=== PATIENT | female | born 1980 | race Caucasian/White ===

== ENCOUNTER 2017-01-29 12:07 | Inpatient (IN) | payer SELFPAY ==
[2017-01-29] MEDS ORDERED: NS 1000 ML 1,000 ML ONE ×2 (12:55→15:08)
[2017-01-29] MEDS ORDERED: NS 1000 ML 1,000 ML IV ONE ×2 (13:14→15:14)
--- NOTE | 2017-01-29 13:27 | DR.GENAD ---
HPI - PCP Primary Care Physician: Jerad - Complaint/Symptoms Chief Complaint Doctors Comments: Mom was called by amos and stated that patient walking by the road and needed to be picked up. Mom stated that she brought her to the ED for evaluation. Patient denies being homocidal or suicidal. She admits to being a user of drugs for three years atleast Chief Complaint:: pt states she is hurting all over her body and that she has been coughin up a lot of cold Self Treatment fo Chief Complaint: Xanax this am. 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 Past Surgical History Comment: tubiligation - Family History History of Family Medical Conditions: Yes Family Medical History: Diabetes Mellitus, Hypertension - Social History Does patient currently use any type of tobacco product: Yes Have you used tobacco products in the last 12 months: Yes Type of Tobacco Use: Cigarettes Does any household member use tobacco: Yes Alcohol Use: None Do you use any recreational Drugs:: No Lives With: Family Lives Where: Home - infectious screening In the last 2 months have you had wt loss of >10#?: NO Have you had fever, night sweats or hemotysis?: No Have you traveled outside the country in the last 6 months?: No Isolation: Standard ROS - Review of Systems Eyes: No Symptoms Reported ENTM: No Symptoms Reported Respiratoy: No Symptoms Reported Cardiovascular: No Symptoms Reported Gastrointestinal/Abdominal: No Symptoms Reported Genitourinary: No Symptoms Reported Neurological: No Symptoms Reported Musculoskeletal: No Symptoms Reported Integumentary: No Symptoms Reported Hematologic/Lymphatic: No Symptoms Reported Endocrine: No Symptoms Reported Psychiatric: No Symptoms Reported All Other Systems: Reviewed and Negative PE - Vital Signs Vitals: Temperature 99.3 F Pulse Rate 126 Respiratory Rate 22 Blood Pressure [Right Arm] 122/71 Blood Pressure 113/67 O2 Sat by Pulse Oximetry 92 - General General Appearance: Alert - Head Head Exam: Normal Inspection, Atraumatic - Eyes Eye exam: Normal Appearance, PERRL, EOMI - ENT ENT Exam: Normal Exam External Ear Exam: Normal External Inspection TM/Canal Exam: Bilateral Normal Nose Exam: Normal Nose Exam Mouth Exam: Normal Inspection Throat Exam: Normal Inspection - Neck Neck Exam: Normal Inspection - Chest Chest Inspection: Normal Inspection - Respiratory Respiratory Exam: Normal Lung Sounds Bilat Respiratory Exam: Bilateral Clear to Auscultation - Cardiovascular Cardiovascular Exam: Regular Rate, Normal Rhythm - Abdominal Exam Abdominal Exam: Normal Inspection Abdominal Tenderness: negative: RUQ, RLQ, LUQ, LLQ, Epigastrium, Suprapubic, Diffuse, Mild, Moderate, Severe, Other - Extremities Extremities Exam: Normal Inspection - Back Back Exam: Normal Inspection, Full ROM - Neurologic Neurological Exam: Alert, Oriented X3, CN II-XII Intact - Psychiatric Psychiatric Exam: Normal Affect - Skin Skin Exam: Warm, Dry Course - Treatment Treatment: Patient did not want questioned in the presence of her mother and her mother would not leave room. Delay in diagnosis and treatment of pneumonia - Reevaluation 1st: Unchanged - Consultation Called: 16:15 (Dr Pfeiffer agreed to admit for further management) ROR - Labs Reviewed Laboratory Results Reviewed?: Yes (meth,opiates,benzo,THC) Result Diagrams: 01/29/17 14:28 01/29/17 14:28 Laboratory: WBC 6.1 X10^3/uL (3.6-10.0) 01/29/17 14:28 RBC 3.96 X10^6/uL (3.5-5.4) 01/29/17 14:28 Hgb 12.0 g/dL (12.0-16.0) 01/29/17 14:28 Hct 34.9 % (36.0-47.0) L 01/29/17 14:28 MCV 88.2 fL (80.0-100.0) 01/29/17 14:28 MCH 30.3 pg (27.0-34.0) 01/29/17 14:28 MCHC 34.4 g/dL (33.0-35.0) 01/29/17 14:28 RDW 12.8 % (11.6-16.5) 01/29/17 14:28 Plt Count 170 X10^3/uL (150.0-450.0) 01/29/17 14:28 Plt Count Comment Adequate (ADEQUATE) 01/29/17 14:28 MPV 8.7 fL (7.4-11.0) 01/29/17 14:28 Neut % 91.5 % (42.0-75.0) H 01/29/17 14:28 Lymph % 5.5 % (21.0-51.0) L 01/29/17 14:28 [place] % 2.8 % (0.0-13.0) 01/29/17 14:28 Eos % 0.0 % (0.9-2.9) L 01/29/17 14:28 Baso % 0.2 % (0.2-1.0) 01/29/17 14:28 Neut # 5.6 x10^3/uL (2.2-4.8) H 01/29/17 14:28 Lymph # 0.3 X10^3/uL (1.3-2.9) L 01/29/17 14:28 [place] # 0.2 x10^3/uL (0.3-0.8) L 01/29/17 14:28 Eos # 0.0 x10^3/uL (0.0-0.2) 01/29/17 14:28 Baso # 0.0 X10^3/uL (0.0-0.1) 01/29/17 14:28 Absolute Nucleated RBC 0.0 /100WBC 01/29/17 14:28 Total Counted 100 01/29/17 14:28 Neutrophils % (Manual) 55 % (39-76) 01/29/17 14:28 Band Neutrophils % 24 % (0-10) H 01/29/17 14:28 Lymphocytes % (Manual) 7 % (13-43) L 01/29/17 14:28 Monocytes % (Manual) 2 % (4-9) L 01/29/17 14:28 Metamyelocytes % 9 01/29/17 14:28 Myelocytes % 3 01/29/17 14:28 Plt Morphology Comment Normal (NORMAL) 01/29/17 14:28 RBC Morphology Normal (NORMAL) 01/29/17 14:28 Sodium 136 mmol/L (136-145) 01/29/17 14:28 Corrected Sodium TNP 01/29/17 14:28 Potassium 3.9 mmol/L (3.5-5.1) 01/29/17 14:28 Chloride 105 mmol/L (98-107) 01/29/17 14:28 Carbon Dioxide 27.5 mmol/L (21-32) 01/29/17 14:28 BUN 15 mg/dL (7-18) 01/29/17 14:28 Creatinine 0.93 mg/dL (0.55-1.02) 01/29/17 14:28 Est GFR (MDRD) Af Amer > 60 (>60) 01/29/17 14:28 Est GFR (MDRD) Non-Af > 60 (>60) 01/29/17 14:28 Glucose 99 mg/dL (65-99) 01/29/17 14:28 Calcium 7.9 mg/dL (8.5-10.1) L 01/29/17 14:28 Corrected Calcium 8.9 mg/dL (8.5-10.1) 01/29/17 14:28 Total Bilirubin 0.80 mg/dL (0.2-1.0) 01/29/17 14:28 AST 17 Units/L (15-37) 01/29/17 14:28 ALT 21 Units/L (12-78) 01/29/17 14:28 Alkaline Phosphatase 47 Units/L (46-116) 01/29/17 14:28 Total Protein 5.5 g/dL (6.4-8.2) L 01/29/17 14:28 Albumin 2.7 g/dL (3.4-5.0) L 01/29/17 14:28 Globulin 2.8 g/dL (2.5-4.5) 01/29/17 14:28 Albumin/Globulin Ratio 1.0 Ratio (1.1-2.1) L 01/29/17 14:28 Specimen Type Catherized urine 01/29/17 14:35 Urine Color Yellow (YELLOW) 01/29/17 14:35 Urine Appearance Clear (CLEAR) 01/29/17 14:35 Urine pH 6.0 (5.0 - 8.0) 01/29/17 14:35 Ur Specific [place] 1.010 (1.000-1.030) 01/29/17 14:35 Urine Protein 1+ (NEGATIVE) 01/29/17 14:35 Urine Glucose (UA) Negative (NEGATIVE) 01/29/17 14:35 Urine Ketones Negative (NEGATIVE) 01/29/17 14:35 Urine Occult Blood Negative (NEGATIVE) 01/29/17 14:35 Urine Nitrite Negative (NEGATIVE) 01/29/17 14:35 Urine Bilirubin Negative (NEGATIVE) 01/29/17 14:35 Urine Urobilinogen Normal (NORMAL) 01/29/17 14:35 Ur Leukocyte Esterase 1+ (NEGATIVE) 01/29/17 14:35 Urine RBC 0-1 /HPF (NEGATIVE) 01/29/17 14:35 Urine WBC 3-5 /HPF (NEGATIVE) 01/29/17 14:35 Ur Squamous Epith Cells Few /HPF (NEGATIVE) 01/29/17 14:35 Amorphous Sediment Trace /HPF (NEGATIVE) 01/29/17 14:35 Urine Bacteria Trace /HPF (NEGATIVE) 01/29/17 14:35 Urine Mucus Few /HPF (NEGATIVE) 01/29/17 14:35 Ur Culture Indicated? No/not indicated 01/29/17 14:35 Urine Opiates Screen Positive (NEG=<300) A 01/29/17 14:35 Urine Methadone Screen Negative (NEG=<300) 01/29/17 14:35 Ur Barbiturates Screen Negative (NEG=<200) 01/29/17 14:35 Ur Phencyclidine Scrn Negative (NEG=<25) 01/29/17 14:35 Ur Amphetamines Screen Positive (NEG=<1000) A 01/29/17 14:35 U Benzodiazepines Scrn Positive (NEG=<200) A 01/29/17 14:35 Urine Cocaine Screen Negative (NEG=<300) 01/29/17 14:35 U Marijuana (THC) Screen Positive (NEG=<50) A 01/29/17 14:35 Streptococcus Screen Negative (NEGATIVE) 01/29/17 14:47 - XRAY XRAY Interpreted by: Radiologist (LLL pneumonia) - Diagnosis Discharge Problem: Drug abuse and dependence LLL pneumonia Qualifiers: Pneumonia type: due to unspecified organism Qualified Code(s): J18.1 - Lobar pneumonia, unspecified organism - Discharge Plan Condition: Stable - Follow ups/Referrals Follow ups/Referrals: Marcel Mars [Primary Care Provider] - 3 days - Instructions
[2017-01-29 14:35] LABS: BASOPHILS % (AUTO) 0.2 % (0.2-1.0); HEMATOCRIT 34.9 % (36.0-47.0); LYMPHOCYTES # (AUTO) 0.3 X10^3/uL (1.3-2.9); LYMPHOCYTES % (AUTO) 5.5 % (21.0-51.0); MEAN CORPUSCULAR HEMOGLOBIN 30.3 pg (27.0-34.0); MEAN CORPUSCULAR HGB CONC 34.4 g/dL (33.0-35.0); MEAN CORPUSCULAR VOLUME 88.2 fL (80.0-100.0); MEAN PLATELET VOLUME 8.7 fL (7.4-11.0); MONOCYTES # (AUTO) 0.2 x10^3/uL (0.3-0.8); MONOCYTES % (AUTO) 2.8 % (0.0-13.0); NEUTROPHILS # (AUTO) 5.6 x10^3/uL (2.2-4.8); NEUTROPHILS % (AUTO) 91.5 % (42.0-75.0); PLATELET COUNT 170 X10^3/uL (150.0-450.0); RED BLOOD COUNT 3.96 X10^6/uL (3.5-5.4); RED CELL DISTRIBUTION WIDTH 12.8 % (11.6-16.5); WHITE BLOOD COUNT 6.1 X10^3/uL (3.6-10.0)
[2017-01-29 14:43] LABS: BILIRUBIN,URINE NEGATIVE (NEGATIVE); BLOOD/HEMOGLOBIN,URINE NEGATIVE (NEGATIVE); GLUCOSE, URINE NEGATIVE (NEGATIVE); KETONES,URINE NEGATIVE (NEGATIVE); LEUKOCYTE ESTERASE ,URINE 1+ (NEGATIVE); NITRITES,URINE NEGATIVE (NEGATIVE); PROTEIN,URINE 1+ (NEGATIVE); UROBILINOGEN,URINE NORMAL (NORMAL)
[2017-01-29 14:50] LABS: ALANINE AMINOTRANSFERASE 21 Units/L (12-78); ALBUMIN 2.7 g/dL (3.4-5.0); ALKALINE PHOSPHATASE 47 Units/L (46-116); ASPARTATE AMINO TRANSFERASE 17 Units/L (15-37); BLOOD UREA NITROGEN 15 mg/dL (7-18); CALCIUM 7.9 mg/dL (8.5-10.1); CARBON DIOXIDE 27.5 mmol/L (21-32); CHLORIDE 105 mmol/L (98-107); COR CA(FOR HYPOALB) 8.9 mg/dL (8.5-10.1); CREATININE 0.93 mg/dL (0.55-1.02); SODIUM 136 mmol/L (136-145); TOTAL PROTEIN 5.5 g/dL (6.4-8.2); eGFR BLACK RACES > 60 (>60); eGFR NON BLACK RACES > 60 (>60)
[2017-01-29 15:00] LABS: AMORPHOUS SEDIMENT,UR TRACE /HPF (NEGATIVE); APPEARANCE,URINE CLEAR (CLEAR); BACTERIA,URINE TRACE /HPF (NEGATIVE); COLOR,URINE YELLOW (YELLOW); MUCUS,URINE FEW /HPF (NEGATIVE); RBC,URINE 0-1 /HPF (NEGATIVE); SQUAMOUS EPITHELIAL CELL,UR FEW /HPF (NEGATIVE)
[2017-01-29 15:07] LABS: BAND NEUTROPHILS % 24 % (0-10)
[2017-01-29 15:08] LABS: METAMYELOCYTES % 9; MYELOCYTES % 3; PLATELET MORPHOLOGY COMMENT NORMAL (NORMAL)
--- NOTE | 2017-01-29 15:42 | RAD ---
History: Cough Study: Portable AP chest Comparison: None Findings: There is diffuse airspace disease in the left lower lobe medially. The right lung is grossl y clear and the heart size is normal. There is no obvious pleural effusion. Impression: Left lower lobe pneumonia Reported By:
[2017-01-29] MEDS ORDERED: ROCEPHIN 1 GM IV PREMIX * OUT OF STOCK 50 ML IV ONE (16:35)
[2017-01-29] MEDS ORDERED: ZOFRAN INJ 4 MG VIAL IVP PRN (16:36)
[2017-01-29] MEDS: ROCEPHIN VIAL 1 GM 1 GM in NS 50 ML IV + SPIKE MINIBAG* 50 ML IV SCH (16:42)
[2017-01-29] MEDS ORDERED: SALINE 3% 15 ML NEB TX ONE (17:03)
[2017-01-29] MEDS ORDERED: DUONEB 0.5 MG/3 MG ONE (17:15)
[2017-01-29] MEDS: DUONEB 0.5 MG/3 MG NEB SCH ×2 (17:19→20:38)
[2017-01-29] MEDS: ROBITUSSIN DM PO SCH ×2 (17:40→19:59)
[2017-01-29] MEDS ORDERED: ROBITUSSIN DM ONE (19:48)
[2017-01-29] MEDS ORDERED: NS 1/2 1000 ML IV 1,000 ML IV ONE (19:48)
[2017-01-29] MEDS: NS 1/2 1000 ML IV 1,000 ML IV SCH (19:53)
[2017-01-29] MEDS ORDERED: TORADOL 30 MG VIAL IVP ONE (19:58)
[2017-01-29] MEDS: VIBRAMYCIN 100 MG in NS 100 ML IV + SPIKE MINIBAG* 100 ML IV SCH (19:59)
[2017-01-29] MEDS ORDERED: TORADOL 30 MG VIAL ONE (19:59)
[2017-01-29 20:41] VITALS: BMI 19.8
[2017-01-30] MEDS: DUONEB 0.5 MG/3 MG NEB SCH ×6 (00:24→20:42)
[2017-01-30] MEDS: TYLENOL 325 MG TAB PO PRN (02:09)
[2017-01-30 06:10] LABS: BASOPHILS % (AUTO) 0.2 % (0.2-1.0); EOSINOPHILS % (AUTO) 0.1 % (0.9-2.9); HEMATOCRIT 33.2 % (36.0-47.0); HEMOGLOBIN 11.9 g/dL (12.0-16.0); LYMPHOCYTES # (AUTO) 0.5 X10^3/uL (1.3-2.9); LYMPHOCYTES % (AUTO) 6.3 % (21.0-51.0); MEAN CORPUSCULAR HEMOGLOBIN 31.5 pg (27.0-34.0); MEAN CORPUSCULAR HGB CONC 35.7 g/dL (33.0-35.0); MEAN CORPUSCULAR VOLUME 88.2 fL (80.0-100.0); MEAN PLATELET VOLUME 9.7 fL (7.4-11.0); MONOCYTES # (AUTO) 0.1 x10^3/uL (0.3-0.8); MONOCYTES % (AUTO) 1.8 % (0.0-13.0); NEUTROPHILS # (AUTO) 6.8 x10^3/uL (2.2-4.8); NEUTROPHILS % (AUTO) 91.6 % (42.0-75.0); PLATELET COUNT 159 X10^3/uL (150.0-450.0); RED BLOOD COUNT 3.77 X10^6/uL (3.5-5.4); RED CELL DISTRIBUTION WIDTH 12.7 % (11.6-16.5); WHITE BLOOD COUNT 7.4 X10^3/uL (3.6-10.0)
[2017-01-30 06:32] LABS: ALANINE AMINOTRANSFERASE 19 Units/L (12-78); ALBUMIN 2.2 g/dL (3.4-5.0); ALKALINE PHOSPHATASE 49 Units/L (46-116); ASPARTATE AMINO TRANSFERASE 19 Units/L (15-37); BLOOD UREA NITROGEN 18 mg/dL (7-18); CALCIUM 7.9 mg/dL (8.5-10.1); CARBON DIOXIDE 23.2 mmol/L (21-32); CHLORIDE 103 mmol/L (98-107); COR CA(FOR HYPOALB) 9.3 mg/dL (8.5-10.1); COR NA(FOR HYPERGLY) 135 mmol/L (136-145); CREATININE 1.04 mg/dL (0.55-1.02); SODIUM 135 mmol/L (136-145); TOTAL PROTEIN 5.1 g/dL (6.4-8.2); eGFR BLACK RACES > 60 (>60); eGFR NON BLACK RACES > 60 (>60)
--- NOTE | 2017-01-30 06:46 | RAD ---
HISTORY: Follow up pneumonia Study: Chest PA and lateral Comparison: January 29, 2017 Findings: The heart is within normal limits in size. No congestive heart failure is noted. Increasing left lowe r lobe infiltrate is identified now with a small left pleural effusion present. The left upper lung f ield is clear. Interstitial lung changes are present throughout the right lung not significantly diff erent from the prior examination. The bony thorax is unremarkable. IMPRESSION: Increasing left lower lobe infiltrate now with a small left pleural effusion. Diffuse interstitial lung changes throughout the right lung, stable Reported By:
[2017-01-30 07:14] LABS: BAND NEUTROPHILS % 29 % (0-10); METAMYELOCYTES % 3; PLATELET MORPHOLOGY COMMENT NORMAL (NORMAL)
[2017-01-30] MEDS: ROCEPHIN VIAL 1 GM 1 GM in NS 50 ML IV + SPIKE MINIBAG* 50 ML IV SCH (10:04)
[2017-01-30] MEDS: ROBITUSSIN DM PO SCH ×4 (10:04→21:38)
[2017-01-30] MEDS: NICODERM PATCH 21 MG/24 HR TD SCH (10:05)
[2017-01-30] MEDS: VIBRAMYCIN 100 MG in NS 100 ML IV + SPIKE MINIBAG* 100 ML IV SCH ×2 (10:05→21:39)
[2017-01-30] MEDS ORDERED: NS 1/2 1000 ML IV 1,000 ML IV ONE (14:09)
[2017-01-30] MEDS: NS 1/2 1000 ML IV 1,000 ML IV SCH ×2 (14:20→21:38)
[2017-01-30] MEDS ORDERED: TORADOL 30 MG VIAL IVP ONE (17:25)
[2017-01-31] MEDS: DUONEB 0.5 MG/3 MG NEB SCH ×6 (01:28→20:15)
[2017-01-31] MEDS: TYLENOL 325 MG TAB PO PRN (02:16)
[2017-01-31] MEDS: ROBITUSSIN DM PO SCH ×4 (08:37→21:05)
[2017-01-31] MEDS: ROCEPHIN VIAL 1 GM 1 GM in NS 50 ML IV + SPIKE MINIBAG* 50 ML IV SCH (08:37)
[2017-01-31] MEDS: VIBRAMYCIN 100 MG in NS 100 ML IV + SPIKE MINIBAG* 100 ML IV SCH (08:37)
[2017-01-31] MEDS: NICODERM PATCH 21 MG/24 HR TD SCH (08:38)
--- NOTE | 2017-01-31 09:48 | DR.H&P ---
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 - Family History Family Medical History: Diabetes Mellitus, Hypertension - Social History Does patient currently use any type of tobacco product: Yes Have you used tobacco products in the last 12 months: Yes Type of Tobacco Use: Cigarettes How many years tobacco product used: 25 Packs per day or dips/chews per day: 1 AND HALF Does any household member use tobacco: Yes Alcohol Use: None Drug Use: None - Medications Home Medications: NK [NK] 01/29/17 [History Confirmed 01/29/17] - Physical Exam Vital Signs: Temperature 98.5 F Pulse Rate [Right Radial] 111 Pulse Rate 117 Respiratory Rate 18 Blood Pressure [Right Arm] 116/71 Blood Pressure 113/67 O2 Sat by Pulse Oximetry 97
[2017-01-31 11:32] LABS: BASOPHILS % (AUTO) 0.2 % (0.2-1.0); EOSINOPHILS # (AUTO) 0.2 x10^3/uL (0.0-0.2); EOSINOPHILS % (AUTO) 1.3 % (0.9-2.9); HEMATOCRIT 31.6 % (36.0-47.0); HEMOGLOBIN 10.8 g/dL (12.0-16.0); LYMPHOCYTES # (AUTO) 0.8 X10^3/uL (1.3-2.9); LYMPHOCYTES % (AUTO) 4.3 % (21.0-51.0); MEAN CORPUSCULAR HEMOGLOBIN 30.1 pg (27.0-34.0); MEAN CORPUSCULAR HGB CONC 34.2 g/dL (33.0-35.0); MEAN PLATELET VOLUME 9.7 fL (7.4-11.0); MONOCYTES # (AUTO) 0.5 x10^3/uL (0.3-0.8); MONOCYTES % (AUTO) 2.7 % (0.0-13.0); NEUTROPHILS # (AUTO) 16.1 x10^3/uL (2.2-4.8); NEUTROPHILS % (AUTO) 91.5 % (42.0-75.0); PLATELET COUNT 154 X10^3/uL (150.0-450.0); RED BLOOD COUNT 3.59 X10^6/uL (3.5-5.4); RED CELL DISTRIBUTION WIDTH 13.2 % (11.6-16.5); WHITE BLOOD COUNT 17.6 X10^3/uL (3.6-10.0)
[2017-01-31 11:43] LABS: ALANINE AMINOTRANSFERASE 19 Units/L (12-78); ALKALINE PHOSPHATASE 82 Units/L (46-116); ASPARTATE AMINO TRANSFERASE 15 Units/L (15-37); BLOOD UREA NITROGEN 15 mg/dL (7-18); CALCIUM 8.5 mg/dL (8.5-10.1); CHLORIDE 110 mmol/L (98-107); COR CA(FOR HYPOALB) 10.1 mg/dL (8.5-10.1); CREATININE 0.93 mg/dL (0.55-1.02); SODIUM 143 mmol/L (136-145); TOTAL PROTEIN 5.1 g/dL (6.4-8.2); eGFR BLACK RACES > 60 (>60); eGFR NON BLACK RACES > 60 (>60)
[2017-01-31 11:53] LABS: BAND NEUTROPHILS % 9 % (0-10); PLATELET MORPHOLOGY COMMENT NORMAL (NORMAL)
[2017-01-31] MEDS ORDERED: K-LYTE EFFERVESCENT PO PRN (12:26)
[2017-01-31] MEDS ORDERED: POTASSIUM CHLORIDE LIQ 20 MEQ UDC PO PRN (12:26)
[2017-01-31] MEDS ORDERED: K-DUR TAB 20 MEQ PO PRN (12:26)
[2017-01-31] MEDS ORDERED: K-RIDER 10 MEQ/NS 100 ML 10 MEQ/100 ML BAG IV PRN (12:26)
--- NOTE | 2017-01-31 15:37 | RAD ---
Chest PA and lateral Indication: Cough and dyspnea. Comparison: January 30, 2017. Findings: There is bilateral pulmonary opacities. These are compatible with pneumonia 's the prior, w orse on the left. Impression: Multi focal pneumonia in the lower lungs bilaterally, worse on the left. Followup to reso lution. Reported By:
[2017-01-31] MEDS ORDERED: SALINE 3% 15 ML NEB TX ONE (17:33)
[2017-01-31] MEDS: LEVAQUIN PREMIX IV 750 MG 750 MG/150 ML BAG IV SCH (18:41)
[2017-01-31] MEDS ORDERED: NS 1/2 1000 ML IV 1,000 ML IV ONE (21:01)
[2017-01-31] MEDS: NS 1/2 1000 ML IV 1,000 ML IV SCH (21:05)
[2017-02-01] MEDS: DUONEB 0.5 MG/3 MG NEB SCH ×4 (00:07→12:02)
[2017-02-01] MEDS: NS 1/2 1000 ML IV 1,000 ML IV SCH ×3 (00:23→09:20)
[2017-02-01] MEDS: TYLENOL 325 MG TAB PO PRN (05:00)
[2017-02-01 06:18] LABS: BASOPHILS % (AUTO) 0.4 % (0.2-1.0); EOSINOPHILS # (AUTO) 0.3 x10^3/uL (0.0-0.2); EOSINOPHILS % (AUTO) 2.7 % (0.9-2.9); HEMATOCRIT 30.7 % (36.0-47.0); HEMOGLOBIN 10.7 g/dL (12.0-16.0); LYMPHOCYTES # (AUTO) 1.2 X10^3/uL (1.3-2.9); LYMPHOCYTES % (AUTO) 10.8 % (21.0-51.0); MEAN CORPUSCULAR HEMOGLOBIN 30.4 pg (27.0-34.0); MEAN CORPUSCULAR HGB CONC 34.7 g/dL (33.0-35.0); MEAN CORPUSCULAR VOLUME 87.7 fL (80.0-100.0); MEAN PLATELET VOLUME 9.5 fL (7.4-11.0); MONOCYTES # (AUTO) 0.7 x10^3/uL (0.3-0.8); MONOCYTES % (AUTO) 6.3 % (0.0-13.0); NEUTROPHILS # (AUTO) 9.2 x10^3/uL (2.2-4.8); NEUTROPHILS % (AUTO) 79.8 % (42.0-75.0); PLATELET COUNT 165 X10^3/uL (150.0-450.0); RED CELL DISTRIBUTION WIDTH 13.2 % (11.6-16.5); WHITE BLOOD COUNT 11.5 X10^3/uL (3.6-10.0)
[2017-02-01 06:23] LABS: ALANINE AMINOTRANSFERASE 21 Units/L (12-78); ALKALINE PHOSPHATASE 81 Units/L (46-116); ASPARTATE AMINO TRANSFERASE 18 Units/L (15-37); BLOOD UREA NITROGEN 8 mg/dL (7-18); CALCIUM 8.6 mg/dL (8.5-10.1); CARBON DIOXIDE 28.5 mmol/L (21-32); CHLORIDE 109 mmol/L (98-107); COR CA(FOR HYPOALB) 10.2 mg/dL (8.5-10.1); CREATININE 0.78 mg/dL (0.55-1.02); SODIUM 143 mmol/L (136-145); TOTAL PROTEIN 5.4 g/dL (6.4-8.2); eGFR BLACK RACES > 60 (>60); eGFR NON BLACK RACES > 60 (>60)
--- NOTE | 2017-02-01 07:32 | RAD ---
HISTORY: Cough. Study: Two-view chest. Comparison: January 31, 2017. Findings: The trachea is midline. The cardiac silhouette is within normal limits. There are bibasilar interstit ial airspace opacities, left greater than right, with slight improvement of the right basilar opaciti es. There is no new consolidation or enlarging pleural effusion. There is no pneumothorax. The bony t horax is grossly unremarkable. IMPRESSION: Bibasilar airspace disease, left greater than right, with interval improvement of the right basilar o pacities. Reported By:
[2017-02-01] MEDS ORDERED: COLACE CAP 100 MG PO SCH (08:00)
[2017-02-01] MEDS ORDERED: MILK OF MAGNESIA PO SCH (08:00)
[2017-02-01] MEDS: ROBITUSSIN DM PO SCH ×2 (09:09→14:04)
[2017-02-01] MEDS: ROCEPHIN VIAL 1 GM 1 GM in NS 50 ML IV + SPIKE MINIBAG* 50 ML IV SCH (09:10)
[2017-02-01] MEDS: NICODERM PATCH 21 MG/24 HR TD SCH (09:10)
[2017-02-01] MEDS: LEVAQUIN PREMIX IV 750 MG 750 MG/150 ML BAG IV SCH (09:11)
[2017-02-01] MEDS ORDERED: NS 1/2 1000 ML IV 1,000 ML IV ONE (09:19)
[2017-02-01 13:04] VITALS: BP 142/96
== END 2017-02-01 14:35 | disposition home or self-care (01) | DRG 194 ==
LOC: ER 12:28 → MED/SURG 19:05 → OBSVTOIN 01-30 09:00
PROVIDERS: ADMIT Internal Medicine; ATTEND Internal Medicine
DX: J13 Pneumonia due to Streptococcus pneumoniae (principal); F19.20 Other psychoactive substance dependence, uncomplicated; M25.50 Pain in unspecified joint
CPT/HCPCS: 36415; 71010; 71020; 80053; 80307; 81001; 83605; 84132; 85025; 87040; 87070; 87077; 87186; 87205; 87880; 94640; 94760; 96365; 96367; 96374; 96375; 99284; A4222; G0378; G0434; J0696; J1885; J1956; J2405; J3490; J7620

== ENCOUNTER 2017-02-02 07:28 | Emergency (ER) | payer SELFPAY ==
[2017-02-02 07:33] VITALS: BP 155/92
--- NOTE | 2017-02-02 08:12 | DR.GENAD ---
HPI - PCP Primary Care Physician: kevin - HPI Comment HPI Comment: DISCHARGE HOME FROM HOSPITAL YESTERDAY FOR PNEUMONIA. CONTINUE TO COUGH AND SHE IS SOB, PERSISTENT COUGHING HURTING CHEST. WORSE TODAY. CURRENTLY ON LEVAQUIN ANTIBIOTIC FOR THE PNEUMONIA. - Complaint/Symptoms Chief Complaint Doctors Comments: INCREASING SOB, COUGH AND CHEST PAIN. Chief Complaint:: patient stated she was placed in our hospital and was d/c yesterday with pneumonia. she stated she was having pain when she breaths yesterday. 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 - Family History History of Family Medical Conditions: Yes Family Medical History: Diabetes Mellitus, Hypertension - Social History Does patient currently use any type of tobacco product: Yes Have you used tobacco products in the last 12 months: Yes Type of Tobacco Use: Cigarettes How many years tobacco product used: 10 Does any household member use tobacco: No Alcohol Use: None Do you use any recreational Drugs:: Yes (thc) Lives With: Family Lives Where: Home - infectious screening In the last 2 months have you had wt loss of >10#?: NO Have you had fever, night sweats or hemotysis?: No Have you traveled outside the country in the last 6 months?: No Isolation: Standard ROS - Review of Systems Constitutional: Weakness, Fatigue, Loss of Appetite. negative: Chills, Fever Eyes: No Symptoms Reported ENTM: Nose Discharge, Nose Congestion. negative: Ear Pain, Throat Pain Respiratoy: Non-Productive Cough, Short of Breath Cardiovascular: Chest Pain Gastrointestinal/Abdominal: Nausea, Vomiting, Other Neurological: Headache, Weakness, Dizziness Musculoskeletal: Muscle Pain, Chest wall Integumentary: No Symptoms Reported Hematologic/Lymphatic: No Symptoms Reported Endocrine: No Symptoms Reported All Other Systems: Reviewed and Negative PE - Vital Signs Vitals: Temperature 98.5 F Pulse Rate 109 Respiratory Rate 16 Blood Pressure [Right Arm] 142/96 Blood Pressure 155/92 O2 Sat by Pulse Oximetry 99 - General Limitations: No Limitations General Appearance: Alert - Head Head Exam: Normal Inspection - Eyes Eye exam: Normal Appearance - ENT ENT Exam: Normal External Ear Exam External Ear Exam: Normal External Inspection TM/Canal Exam: Bilateral Normal Nose Exam: Normal Nose Exam Mouth Exam: Normal Inspection Throat Exam: Normal Inspection - Neck Neck Exam: Normal Inspection - Chest Chest Inspection: Symmetric Chest Wall Rise - Respiratory Respiratory Exam: Normal Lung Sounds Bilat Respiratory Exam: Bilateral Wheezing, Bilateral Rhonchi, Upper Wheezing, Upper Rhonchi, Lower Wheezing, Lower Rales, Lower Rhonchi - Cardiovascular Cardiovascular Exam: Regular Rate, Normal Rhythm, Normal Heart Sounds - Abdominal Exam Abdominal Exam: Normal Bowel Sounds, Soft. negative: Tenderness - Extremities Extremities Exam: Normal Inspection - Back Back Exam: Normal Inspection - Neurologic Neurological Exam: Alert, Oriented X3 - Psychiatric Psychiatric Exam: Anxious - Skin Skin Exam: Normal Color [facility] - Additional Information Additional Information Obtained From: Family - Differential Diagnosis Differential Diagnosis: PNEUMONIAL, CHEST PAIN Course - Treatment Treatment: SEE ORDERS - Education/Counseling Education/Counseling: Patient, Family, Education Educated On: Treatment, Diagnosis, Needs for Follow Up ROR - Labs Reviewed Laboratory Results Reviewed?: Yes Result Diagrams: 02/02/17 08:25 02/02/17 08:25 Laboratory: WBC 9.0 X10^3/uL (3.6-10.0) 02/02/17 08:25 RBC 3.84 X10^6/uL (3.5-5.4) 02/02/17 08:25 Hgb 11.6 g/dL (12.0-16.0) L 02/02/17 08:25 Hct 33.9 % (36.0-47.0) L 02/02/17 08:25 MCV 88.4 fL (80.0-100.0) 02/02/17 08:25 MCH 30.2 pg (27.0-34.0) 02/02/17 08:25 MCHC 34.1 g/dL (33.0-35.0) 02/02/17 08:25 RDW 13.1 % (11.6-16.5) 02/02/17 08:25 Plt Count 210 X10^3/uL (150.0-450.0) 02/02/17 08:25 MPV 8.6 fL (7.4-11.0) 02/02/17 08:25 Neut % 67.7 % (42.0-75.0) 02/02/17 08:25 Lymph % 16.8 % (21.0-51.0) L 02/02/17 08:25 [place] % 11.6 % (0.0-13.0) 02/02/17 08:25 Eos % 3.5 % (0.9-2.9) H 02/02/17 08:25 Baso % 0.4 % (0.2-1.0) 02/02/17 08:25 Neut # 6.1 x10^3/uL (2.2-4.8) H 02/02/17 08:25 Lymph # 1.5 X10^3/uL (1.3-2.9) 02/02/17 08:25 [place] # 1.0 x10^3/uL (0.3-0.8) H 02/02/17 08:25 Eos # 0.3 x10^3/uL (0.0-0.2) H 02/02/17 08:25 Baso # 0.0 X10^3/uL (0.0-0.1) 02/02/17 08:25 Absolute Nucleated RBC 0.0 /100WBC 02/02/17 08:25 Sodium 143 mmol/L (136-145) 02/02/17 08:25 Corrected Sodium TNP 02/02/17 08:25 Potassium 4.4 mmol/L (3.5-5.1) 02/02/17 08:25 Chloride 107 mmol/L (98-107) 02/02/17 08:25 Carbon Dioxide 29.7 mmol/L (21-32) 02/02/17 08:25 BUN 5 mg/dL (7-18) L 02/02/17 08:25 Creatinine 0.79 mg/dL (0.55-1.02) 02/02/17 08:25 Est GFR (MDRD) Af Amer > 60 (>60) 02/02/17 08:25 Est GFR (MDRD) Non-Af > 60 (>60) 02/02/17 08:25 Glucose 77 mg/dL (65-99) 02/02/17 08:25 Calcium 9.0 mg/dL (8.5-10.1) 02/02/17 08:25 Corrected Calcium 10.4 mg/dL (8.5-10.1) H 02/02/17 08:25 Total Bilirubin 0.10 mg/dL (0.2-1.0) L 02/02/17 08:25 AST 17 Units/L (15-37) 02/02/17 08:25 ALT 23 Units/L (12-78) 02/02/17 08:25 Alkaline Phosphatase 86 Units/L (46-116) 02/02/17 08:25 Total Protein 6.2 g/dL (6.4-8.2) L 02/02/17 08:25 Albumin 2.2 g/dL (3.4-5.0) L 02/02/17 08:25 Globulin 4.0 g/dL (2.5-4.5) 02/02/17 08:25 Albumin/Globulin Ratio 0.6 Ratio (1.1-2.1) L 02/02/17 08:25 Specimen Type Clean catch urine 02/02/17 08:52 Urine Color Yellow (YELLOW) 02/02/17 08:52 Urine Appearance Clear (CLEAR) 02/02/17 08:52 Urine pH 7.0 (5.0 - 8.0) 02/02/17 08:52 Ur Specific [place] 1.010 (1.000-1.030) 02/02/17 08:52 Urine Protein Negative (NEGATIVE) 02/02/17 08:52 Urine Glucose (UA) Negative (NEGATIVE) 02/02/17 08:52 Urine Ketones Negative (NEGATIVE) 02/02/17 08:52 Urine Occult Blood Negative (NEGATIVE) 02/02/17 08:52 Urine Nitrite Negative (NEGATIVE) 02/02/17 08:52 Urine Bilirubin Negative (NEGATIVE) 02/02/17 08:52 Urine Urobilinogen Normal (NORMAL) 02/02/17 08:52 Ur Leukocyte Esterase 1+ (NEGATIVE) 02/02/17 08:52 Urine RBC 0-2 /HPF (NEGATIVE) 02/02/17 08:52 Urine WBC 3-5 /HPF (NEGATIVE) 02/02/17 08:52 Ur Squamous Epith Cells Moderate /HPF (NEGATIVE) 02/02/17 08:52 Urine Bacteria Trace /HPF (NEGATIVE) 02/02/17 08:52 Ur Culture Indicated? No/not indicated 02/02/17 08:52 Urine Opiates Screen Positive (NEG=<300) A 02/02/17 08:52 Urine Methadone Screen Negative (NEG=<300) 02/02/17 08:52 Ur Barbiturates Screen Negative (NEG=<200) 02/02/17 08:52 Ur Phencyclidine Scrn Negative (NEG=<25) 02/02/17 08:52 Ur Amphetamines Screen Negative (NEG=<1000) 02/02/17 08:52 U Benzodiazepines Scrn Negative (NEG=<200) 02/02/17 08:52 Urine Cocaine Screen Negative (NEG=<300) 02/02/17 08:52 U Marijuana (THC) Screen Positive (NEG=<50) A 02/02/17 08:52 - XRAY XRAY Interpreted by: Radiologist XRAY Findings: REPORT DISCUSS WITH PATIENT. - Diagnosis Discharge Problem: Pneumonia Qualifiers: Pneumonia type: due to unspecified organism Laterality: bilateral Lung location : lower lobe of lung Qualified Code(s): J18.9 - Pneumonia, unspecified organism Chest pain Qualifiers: Chest pain type: intercostal pain Qualified Code(s): R07.82 - Intercostal pain - Discharge Plan Disposition: 01 HOME, SELF-CARE Condition: Stable Prescriptions: Benzonatate [TESSALON PERLES *] 200 mg PO TID PRN #30 cap PRN Reason: Cough Ketorolac Tromethamine [Toradol Tab] 10 mg PO Q8H PRN #12 tab PRN Reason: Pain - Follow ups/Referrals Follow ups/Referrals: LAURENCE PARKS [Primary Care Provider] - 3 days - Instructions Instructions: Acute Bronchitis, [id number], Community-Acquired Pneumonia, Adult, [id number] Additional Instructions: CONTINUE WITH MED AT HOME. RETURN TO ED IF WORSE.
[2017-02-02] MEDS ORDERED: TORADOL 60 MG VIAL IM ONE (08:16)
[2017-02-02 08:31] LABS: BASOPHILS % (AUTO) 0.4 % (0.2-1.0); EOSINOPHILS # (AUTO) 0.3 x10^3/uL (0.0-0.2); EOSINOPHILS % (AUTO) 3.5 % (0.9-2.9); HEMATOCRIT 33.9 % (36.0-47.0); HEMOGLOBIN 11.6 g/dL (12.0-16.0); LYMPHOCYTES # (AUTO) 1.5 X10^3/uL (1.3-2.9); LYMPHOCYTES % (AUTO) 16.8 % (21.0-51.0); MEAN CORPUSCULAR HEMOGLOBIN 30.2 pg (27.0-34.0); MEAN CORPUSCULAR HGB CONC 34.1 g/dL (33.0-35.0); MEAN CORPUSCULAR VOLUME 88.4 fL (80.0-100.0); MEAN PLATELET VOLUME 8.6 fL (7.4-11.0); MONOCYTES % (AUTO) 11.6 % (0.0-13.0); NEUTROPHILS # (AUTO) 6.1 x10^3/uL (2.2-4.8); NEUTROPHILS % (AUTO) 67.7 % (42.0-75.0); PLATELET COUNT 210 X10^3/uL (150.0-450.0); RED BLOOD COUNT 3.84 X10^6/uL (3.5-5.4); RED CELL DISTRIBUTION WIDTH 13.1 % (11.6-16.5)
[2017-02-02 08:43] LABS: ALANINE AMINOTRANSFERASE 23 Units/L (12-78); ALBUMIN 2.2 g/dL (3.4-5.0); ALKALINE PHOSPHATASE 86 Units/L (46-116); ASPARTATE AMINO TRANSFERASE 17 Units/L (15-37); BLOOD UREA NITROGEN 5 mg/dL (7-18); CARBON DIOXIDE 29.7 mmol/L (21-32); CHLORIDE 107 mmol/L (98-107); COR CA(FOR HYPOALB) 10.4 mg/dL (8.5-10.1); CREATININE 0.79 mg/dL (0.55-1.02); SODIUM 143 mmol/L (136-145); TOTAL PROTEIN 6.2 g/dL (6.4-8.2); eGFR BLACK RACES > 60 (>60); eGFR NON BLACK RACES > 60 (>60)
[2017-02-02] MEDS ORDERED: TORADOL 60 MG VIAL ONE (08:47)
--- NOTE | 2017-02-02 08:51 | RAD ---
HISTORY: Chest pain Study: Single-view chest. Comparison: February 01, 2017. Findings: The trachea is midline. The cardiac silhouette is within normal limits. There are persistent bibasila r opacities, [id number]. Small left pleural effusion is suspected. The upper lung zones are clear bilaterally. The bony thorax is grossly unremarkable. IMPRESSION: Persistent bibasilar opacities, left greater than right, with small left pleural effusion suspected. Reported By:
[2017-02-02 09:04] LABS: BILIRUBIN,URINE NEGATIVE (NEGATIVE); BLOOD/HEMOGLOBIN,URINE NEGATIVE (NEGATIVE); GLUCOSE, URINE NEGATIVE (NEGATIVE); KETONES,URINE NEGATIVE (NEGATIVE); LEUKOCYTE ESTERASE ,URINE 1+ (NEGATIVE); NITRITES,URINE NEGATIVE (NEGATIVE); PROTEIN,URINE NEGATIVE (NEGATIVE); UROBILINOGEN,URINE NORMAL (NORMAL)
[2017-02-02 09:09] LABS: APPEARANCE,URINE CLEAR (CLEAR); BACTERIA,URINE TRACE /HPF (NEGATIVE); COLOR,URINE YELLOW (YELLOW); RBC,URINE 0-2 /HPF (NEGATIVE); SQUAMOUS EPITHELIAL CELL,UR MODERATE /HPF (NEGATIVE)
== END 2017-02-02 11:00 | disposition home or self-care (01) ==
LOC: ER 07:37
DX: J18.9 Pneumonia, unspecified organism (principal); R07.82 Intercostal pain
CPT/HCPCS: 36415; 71010; 80053; 80307; 81001; 85025; 96372; 99283; G0434; J1885